=== PATIENT | female | born 1960 | race Caucasian/White ===

== ENCOUNTER → 2017-09-09 | Outpatient (CLI) | payer MEDICARE ==
[~2017-09-09] MED LIST: MULTIPLE VITAMI1 CAP PO; NORCO 325 MG-101 TAB PO; PLAVIX 75MG TAB75 MG PO; VITAMIN D31000 IU PO; ZESTRIL 5MG5 MG PO; ZOCOR 40MG40 MG PO
== END ==
LOC: MHCPAIN 14:16
DX: G89.29 Other chronic pain (principal); M79.1 Myalgia; M79.2 Neuralgia and neuritis, unspecified; Z87.891 Personal history of nicotine dependence
CPT/HCPCS: G0463

== ENCOUNTER → 2017-10-10 | Outpatient (CLI) | payer MEDICARE | LOC: MHCPAIN 09:50 | DX: G89.29 Other chronic pain (principal); M79.2 Neuralgia and neuritis, unspecified; M79.1 Myalgia; Z87.891 Personal history of nicotine dependence | CPT/HCPCS: G0463 ==

== ENCOUNTER → 2018-01-16 | Outpatient (CLI) | payer MEDICARE, OTHER | LOC: MHCPAIN 09:09 | DX: G89.29 Other chronic pain (principal); M79.2 Neuralgia and neuritis, unspecified; M79.1 Myalgia | CPT/HCPCS: G0463 ==

== ENCOUNTER → 2018-07-13 | Outpatient (CLI) | payer MEDICARE, OTHER | LOC: MHCPAIN 09:01 | DX: G89.29 Other chronic pain (principal); M79.2 Neuralgia and neuritis, unspecified; M79.1 Myalgia; G89.0 Central pain syndrome | CPT/HCPCS: G0463 ==

== ENCOUNTER 2019-12-14 10:15 | Outpatient (CLI) | payer MEDICARE ==
[~2019-12-14] VITALS: Ht 154.9 cm; Wt 58.6 kg
[2019-12-14 10:50] VITALS: BP 98/64; PULSE 87; TEMP 98.5
[2019-12-14] MEDS ORDERED: AMITRIPTYLINE H50 M1 PO (10:52)
[2019-12-14] MEDS ORDERED: AMBIEN 5MG TABLE5 MG PO (10:53)
[2019-12-14] MEDS ORDERED: IRON TABLETS325 MG PO (10:53)
[2019-12-14] MEDS ORDERED: ADVIL200 MG PO (10:54)
[2019-12-14] MEDS ORDERED: CEPHALEXIN500 M1 PO (13:11)
[2019-12-14 14:00] VITALS: BP 104/68; PULSE 96
--- NOTE | 2019-12-14 14:00 | NUR ---
Discharge instructions given to pt.Pt verbalizes understanding.Pt escorted out by this nurse.
== END 2019-12-14 14:38 | disposition home or self-care (01) ==
LOC: COL.CAR 10:15
DX: R55 Syncope and collapse (principal); I10 Essential (primary) hypertension; E78.5 Hyperlipidemia, unspecified; I47.1 Supraventricular tachycardia; Z80.9 Family history of malignant neoplasm, unspecified; Z82.3 Family history of stroke; Z86.73 Personal history of transient ischemic attack (TIA), and cerebral infarction without residual deficits; Z79.02 Long term (current) use of antithrombotics/antiplatelets
CPT/HCPCS: 27124; C1764

== ENCOUNTER 2020-05-02 09:35 | Day surgery (SDC) | payer MEDICARE ==
[~2020-05-02] VITALS: Ht 154.9 cm; Wt 59.0 kg
[~2020-05-02 09:35] MED LIST changes: +ADVIL200 MG PO; +AMBIEN 5MG TABLE5 MG PO; +AMITRIPTYLINE H50 M1 PO; +CEPHALEXIN500 M1 PO; +IRON TABLETS325 MG PO
[2020-05-02 10:02] VITALS: BP 113/91; PULSE 94; TEMP 98.9
[2020-05-02] MEDS ORDERED: CEPHALEXIN500 M1 PO (12:00)
[2020-05-02 12:20] VITALS: BP 115/65; PULSE 87
--- NOTE | 2020-05-02 12:38 | NUR ---
Pt ambulatory to exit at this time. She did not receive any sedation for loop excision. I reviewed dc/rx and f/u instructions with pt who denied questions. 22g saline lock to lfa was dc'd with cath intact, dressing was applied.
== END 2020-05-02 12:44 | disposition home or self-care (01) ==
LOC: COL.CAR 09:35
DX: Z45.89 Encounter for adjustment and management of other implanted devices (principal); Z11.59 Encounter for screening for other viral diseases
CPT/HCPCS: J0690; J7040

== ENCOUNTER → 2020-08-07 | Outpatient (CLI) | payer MEDICARE ==
[~2020-08-07] VITALS: Ht 151.1 cm; Wt 70.3 kg
[~2020-08-07] MED LIST changes: +CEROVITE SENIOR1 TA1 PO; -MULTIPLE VITAMI1 CAP PO; +ZESTRIL 10MG10 MG PO; -ZESTRIL 5MG5 MG PO
[2020-08-07 14:40] VITALS: BP 118/80; PULSE 72
== END ==
LOC: LIGHT 14:32
DX: E66.8 Other obesity (principal); Z68.30 Body mass index [BMI] 30.0-30.9, adult; E78.5 Hyperlipidemia, unspecified; I10 Essential (primary) hypertension
CPT/HCPCS: G0463